=== PATIENT | male | born 1980 | race Caucasian/White ===

== ENCOUNTER 2019-06-03 05:47 | Inpatient (IN) | payer MEDICARE, SELFPAY ==
[2019-05-23 10:55] VITALS: BMI 30.4
[2019-06-03] VITALS (19 sets, daily range): BP systolic 122–161; BP diastolic 72–97; PULSE 62–124; RESP 12–20; TEMP 36.5–37.3; O2SAT 92–99; BMI 30.4
--- NOTE | 2019-06-03 | DI.RAD.S_ITS ---
PROCEDURE: XR LUMBAR SPINE 2-3V INDICATIONS: L3-4, L4-5 TLIF W/ POSTERIOR INSTRUMENTATION,. FINDINGS: 2 limited intraoperative fluoroscopically stored images of the lower lumbar spine were obtained for intraoperative hardware localization purposes. These images are not meant for diagnostic purposes. Intraoperative findings related to a lower lumbar fusion are present. IMPRESSION: Intraoperative images obtained during the patient's lumbar fusion procedure. Dictated by: Franky Weiss M.D. on 06/03/2019 at 11:03 Approved by: Franky Weiss M.D. on 06/03/2019 at 11:05
[2019-06-03] MEDS: LACTATED RINGERS 1,000 ML 42 ML IV ×2 (07:01→09:50)
--- NOTE | 2019-06-03 07:41 | PM.PREOP ---
Pre-operative Note Interval Note History & Physical reviewed/Exam performed by Physician: Yes Changes to H&P: No
[2019-06-03] MEDS: GABAPENTIN 600 MG TABLET 300 MG PO (07:43)
[2019-06-03] MEDS: CEFAZOLIN 2 GM/100 ML FROZ.PIGGY IV ×3 (07:47→23:38)
[2019-06-03] MEDS: ACETAMINOPHEN IV 1,000 MG/100 ML VIAL 400 MG IV (08:10)
--- NOTE | 2019-06-03 08:32 | SUR.OPER ---
Prone on spine table, head in foam head support, padded chest and pelvic supports, gel pad at knees, lower legs supported by pillows; nipples, genitalia and toes free of pressure, arms secured on foam padded arm boards at <90 degrees abduction. Tape over blanket at thigh secured to table.
[2019-06-03] MEDS: BUPIVACAINE 0.25% W/ EPI 30 ML VIAL INJ (08:38)
[2019-06-03] MEDS: BUPIVACAINE LIPOSOME 266 MG/20 ML VIAL INJ (08:38)
--- NOTE | 2019-06-03 12:01 | P.OP_ITS ---
Operative Date/Time/Diagnoses Date of procedure: 06/03/19 Time of procedure: 07:55 Pre-op diagnosis: 1. Post laminectomy syndrome 2. L3-4, L4-5 spinal stenosis 3. L3-4, L4-5 spondylosis with radiculopathy Post-op diagnosis: same Procedure & Clinicians Procedure: 1. L3-4, L4-5 Postero-lateral and posterior interbody fusion 2. L3-4, L4-5 interbody cage placement. 3. L3-4, L4-5 decompressive laminectomy with bilateral facetecomies 4. L3-4, L4-5 Posterior segmental instrumentation 5. [place] of bone marrow from iliac crest 6. Utilization of microsurgical technique and operating microscope Same procedure as scheduled: Yes Indications: Patient has been having chronic back pain and worsening lumbar radiculopathy. Patient failed multiple conservative management with worsening pain weakness and numbness in her lower extremity. Patient has been having difficulty performing activity of daily living. After discussing risks benefits of treatment options, patient elected proceed with surgery. Surgeon: Sushila Bal Medical Assistant Secretary: Iman Carvajal Click Yes if Unassisted: No Anesthesia Type: General Operative Notes Closure Type: primary Specimen(s): none sent Prosthetic devices, grafts, tissues, transplants, or devices: GLobus revolve screws, Rise cages Applied: catheter Estimated Blood Loss (mL): 150 Blood products transfused: none Procedure in detail: Patient was seen in the preoperative area. Risks and benefits of the surgery was discussed with the patient. Informed consent was obtained from the patient and placed in the chart. Surgical site was marked. Patient was taken to the operative room. General anesthesia was administered. Prophylactic antibiotic was given to the patient less than 30 min before the incision was made. Patient was placed into a prone position on the Sharif table. Patient's back was then prepped and draped in the sterile fashion. Time- out was performed at this time. Using AP and lateral C-arm imaging the interval between L3-4, L4-5 was identified and marked on patient's back. A 2 inch incision 2 in from midline was made on the right side first. The fascia was incised in line with skin incision. Globus MARS retractors was placed inside the incision and docked onto the L3 and L4 lamina. Using microsurgical technique and operating microscope, a L3 and L4 laminectomy and L3-4, L4-5 facetectomy was performed using a Kerrison rongeur. During the process of decompression more than 75% of bilateral L3-4, L4-5 facets were removed in order to decompress the spinal canal and the lateral recess. The L3-4, L4-5 level was grossly unstable after the decompression was completed and requiring the fusion procedure. The disc space at L3-4, L4-5 was identified. And a total diskectomy was performed at L3-4, L4-5 level. The endplates were decorticated using a rasp and shaver. The total diskectomy and decortication was performed at L3-4, L4-5 level in order to to accomplish a L3- 4, L4-5 fusion. The local bone from the laminectomy and facetectomy was saved for local bone grafting. After the total diskectomy and decortication was completed, Bio4 bone graft material was combined with local bone that was harvested earlier. At this time, a separate skin is incision was made over the iliac crest. A Jamshidi needle was inserted into the iliac crest through a separate skin incision. 5 cc of bone marrow aspiration was obtained through the separate skin incision using a Jamshidi needle from the iliac crest. The bone marrow aspiration was combined with local bone and the Bio4 bone grafting material. The bone grafting material was placed into the L3-4, L4-5 interbody space along with two cages, one expandable cage at each level. The cages were expanded to their maximum height using the torque limiting screwdriver. At this time a mirror image incision was made on the left side. The fascia was incised in line with the skin incision. Globus MARS retractor was inserted and docked onto the L3-4, L4-5 posterolateral gutter. Using the power drill, p osterior-lateral decortication was performed at L3-4, L4-5 level until bleeding cortical bone was identified. The remaining bone grafting material was placed into the L3-4, L4-5 posterior lateral gutter he order to accomplish posterolateral fusion at the L3-4, L4-5 levels. Using the double C-arm technique, pedicle screws were placed into the L3, L4, L5 pedicles bilaterally. This was done by placing the Jamshidi needle into the pedicles, then placing the guidewires over the Jamshidi needle, and finally placing the cannulated screws over the guidewires bilaterally. After the pedicle screws were placed, 2 titanium rods was locked into the heads of the pedicle screws using locking caps and torque limiting screwdriver. Total 6 pedicles screws were placed. After all the hardware was placed, and confirmed with AP and lateral C-arm imaging, the wound was then irrigated with sterile normal saline and packed with Ray-Rachel gauze for 3 min to accomplish hemostasis. After the gauze was removed the deep fascia was closed with #1 Vicryl suture. The subcutaneous layer was closed with 2-0 Vicryl. The skin was closed with skin stephanie. Patient tolerated the procedure well. There were no complications.
[2019-06-03] MEDS: LORazepam 2 MG/ML INJ 0.5 MG IV ×2 (12:07→12:26)
[2019-06-03] MEDS: OXYCODONE IR 10 MG TABLET PO ×3 (14:06→21:13)
--- NOTE | 2019-06-03 14:35 | PT.IIE ---
Current Diagnoses Spinal stenosis, lumbar region with neurogenic claudication (06/03/19) Intervertebral disc disorders with radiculopathy, lumbar region (06/03/19) Other specified postprocedural states (06/03/19) Surgery Performed Operation Date: 06/03/19 07:45 Actual Procedures p L3-4, L4-5 TLIF w/ posterior instrumentation, L2-3 left far lateral microdiscectomy through extraforamen approach - Sushila Bal MD Surgical History (Last Reviewed 06/03/19 @ 14:20 by Sheri Qiu, RAMSES) Hx of arthroscopy of left knee (Acute) Hx of cervical discectomy (Acute) Hx of lumbosacral spine surgery (Acute) Hx of tonsillectomy (Acute) S/P cervical spinal fusion (Acute ~2013) Medical History (Last Updated 05/23/19 @ 11:14 by Susie Wren RN) Acid reflux (Acute) Anxiety (Acute) Arthritis (Acute) Athlete's foot (Acute) Chronic pain (Acute) DJD (degenerative joint disease) (Acute) Depression (Acute) Failed spinal cord stimulator (Acute ~2018) Migraines (Acute) RLS (restless legs syndrome) (Acute) Sciatica (Acute) Sleep apnea (Acute) Physical Therapy Inpatient Evaluation/Re-Eval M1 PT/OT-IP Prior Functional Status Start: 06/03/19 15:41 Freq: NEEDED Status: Active Protocol: Document 06/03/19 14:35 AB (Rec: 06/03/19 15:55 AB [id number]) Medical Review Prior Functional Status Medical History Reviewed Yes Communication able to make needs known; pt is drowsy and needs cues to keep eyes open Mobility and Gait pt stated that he is modified independent with mobility and ambulation without AD but occasionally uses a SPC depending on pain Activities of Daily Living and IADL's pt stated that he needs assistance with putting his socks/shoes on Social History Household Members spouse family children Living Arrangements House Number of Floors (Floors) 3 or More Floors Number of Stairs To Enter/Railing? pt lives on a split level house but stay on the 1st level of the house without steps to enter Home Environment High Toilet Walk in Shower Home Equipment Front Wheel Walker Quad Cane Straight Cane Manual Wheelchair Long Handled Sponge Additional Social History Comment pt has an adjustable bed pt's spouse will be able to assist pt but stated that she has to go to work but pt's parents lives upstairs from them and can assist pt also. M2 PT-IP Current Condition Start: 06/03/19 15:41 Freq: NEEDED Status: Active Protocol: Document 06/03/19 14:35 AB (Rec: 06/03/19 15:55 AB [id number]) Physical Therapy Current Condition Current Condition Evaluation Date 06/03/19 Treatment Diagnosis s/p L3-5 fusion/lami; difficulty in walking Onset Date 06/03/19 Precautions Lumbar Precautions Log Roll No Twisting Limit Bending Lifting Restriction of 10 lbs Gait Belt above Incisional Area M3 PT-IP Subjective Start: 06/03/19 15:41 Freq: NEEDED Status: Active Protocol: Document 06/03/19 14:35 AB (Rec: 06/03/19 15:55 AB [id number]) Subjective Physical Therapy Visit Type Type Initial Evaluation Visit Start Time 14:35 Visit Stop Time 15:22 Total Visit Minutes 47 Number of WILLOW WORKER Visits 0 Physical Therapy Visit Comments Patient Comments pt wants to get out of the bed Therapy Pain Assessment Pain When Pain Assessed At Rest Pain Present Pain Present Pain Reported Location Lower Back Intensity 8 Scale Used increase to 9/10 with mobility Pain Management Techniques Apply Cold Re-positioning Timing of Activity with Medications M4 PT-IP Mobility and Gait Start: 06/03/19 15:41 Freq: NEEDED Status: Active Protocol: Document 06/03/19 14:35 AB (Rec: 06/03/19 15:55 AB [id number]) PT-Bed Mobility Assessment Rolling Type of Rolling Log Rolling Level of Assist Minimal Assistance Supine to Sit Supine to Sit Minimal Assistance PT-Transfer Assessment Sit to and From Stand Sit to and from Stand Minimal Assistance 1 Person Assistance Use of Upper Extremities Equipment Transfer Assistive Device Gait Belt Front Wheeled Walker Orthotic/Prosthetic Devices or Brace: No Transfers Transfer Destination Chair Transfer Technique pt ambulated using FWW Transfer Ability Level of Assist Minimal Assistance 1 Person Assistance Use of Upper Extremities Comments Mobility Comments BP 133/72 pt completed supine to sit log roll min A and cues for techniques. pt was able to sit on EOB SBA. pt without c/o dizziness/nausea. pt completed sit to stand min A and cues and ambulated in room ~ 25 ft. pt with c/o increarse pain with (+) body shaking. instructed to sit on the chair and completed with max A for controlled descent. BP checked: 122/66. positioned pt on chair. ice pack provided call light and table placed within reach. informed nurse regarding pt's complaints. Gait Assessment Gait Gait Assistance Required: Minimum Assistance Distance (Feet) 25 Able to Maintain Weight Bearing Status Yes During Gait Assistive Devices Assistive Device Gait Belt Front Wheeled Walker Orthotic/Prosthetic Devices or Brace: No Gait Deviations General Gait Pattern Antalgic Decreased Stride Length Decreased Feet Clearance Step-to Gait Factors Limiting Gait Function Factors Limiting Gait Function Decreased Activity Tolerance Decreased Strength Difficulty Following Directions Limited Range of Motion Pain Poor Balance Poor Safety Awareness PT-Balance Assessment Sitting Balance and Reactions Static Sitting Balance Ability Good Dynamic Sitting Balance Ability Good Standing Balance and Reactions Static Standing Balance Ability Fair Dynamic Standing Balance Ability Fair Device Used FWW M5 PT-IP Objective Assessments Start: 06/03/19 15:41 Freq: NEEDED Status: Active Protocol: Document 06/03/19 14:35 AB (Rec: 06/03/19 15:55 AB [id number]) Orientation Orientation/Cognition Level of Alertness Alert Orientation Name Age Birthday Place Situation Language Function Ability No Deficits Noted Safety Awareness Decreased Safety Awareness Memory Description Short Term Impaired Gross Range of Motion Lower Extremity ROM Assessment Right Impaired Strength Lower Extremity Strength Assessment Bilaterally Impaired Comments Strength Comments RLE 3+/5 LLE 4-/5 Coordination Assessment Gross Coordination Gross Coordination WNL Sensation Assessment Sensation Gross Sensation WNL Muscle Tone Muscle Tone WNL Yes M6 PT-IP Treatment Start: 06/03/19 15:41 Freq: NEEDED Status: Active Protocol: Document 06/03/19 14:35 AB (Rec: 06/03/19 15:55 AB [id number]) Physical Therapy Treatment Exercises Exercises Heel Slides Education Education Provided Precautions Weight Bearing Status Post-Op Packet Safety M7 PT-IP Assessment and Plan Start: 06/03/19 15:41 Freq: NEEDED Status: Active Protocol: Document 06/03/19 14:35 AB (Rec: 06/03/19 15:55 AB [id number]) PT Summary Assessment and Plan Potential Rehabilitation Potential Good Status of Condition at Evaluation Evolving Summary Impairments Pain ROM Strength Balance Coordination Cognition Bed Mobility Transfers Gait Activity Tolerance Assessment Summary pt requiring min A with mobility but unable to tolerate much activity due to c/o increase pain. d/c plan depending on progress. caregiver training will be conducted when appropriate. will continue to monitor pt's mobility. Goals Bed Mobility Goal Standby Assistance Transfer Goal Standby Assistance Front Wheeled Walker Gait Goal Standby Assistance Front Wheel Walker Gait Distance 200 Days to Meet Goals 5 Frequency of Treatment Frequency Of Treatment Twice a Day Treatment Plan Physical Therapy Treatment Plan Bed Mobility Training Transfer Training Gait Training Therapeutic Exercise Balance Retraining Post Op Education Discharge Planning Hot or Cold Pack Neuromuscular Re-ed Coordination Retraining Manual Therapy Other Recommendations and Next Treatment bed mobility log roll, Focus transfers, ambulation, caregiver training Recommendations To Nursing Amount of Assist Needed 1 Person Assist Discharge Recommendations PT Discharge Recommendations Home with Assistance
[2019-06-03] MEDS: OXYCODONE IR 5 MG TABLET 10 MG PO ×3 (15:32→23:07)
[2019-06-03] MEDS: SODIUM CHLORIDE 0.9% 1,000 ML 100 ML IV (15:32)
--- NOTE | 2019-06-03 17:47 | PC.NURSE ---
Addendum entered by Ronan Upton R.N. 06/03/19 22:42: patient req. to have Bishop Cath removed as he didn't like how it made him feel Call placed to Dr. Bal, permission to remove bishop earlier then ordered. Patient didn't tolerate removal well, yelled out load with removal, Even with ballon fully deflated. Patient had some dribbeling immediatly post removal as he attempted to void. States there is some burning that lingers when urinating. Original Note: Patient is a&o x4, patient states his pain is 10/10 consistently and crying out in pain. Patient is medicated per orders. Patient is now sitting up to chair eating dinner and seems to be tolerate of pain. Patient has req. mult times to have his bishop out. Patient did not tolerate removal well. Patient states I will pee as soon as you remove it. Lots of patient teaching done with patient regarding protocols post cath removal and urination. Patient attempted to urinate post Bishop removal but was unsuccessful. Urinal at bedside for patient use.
[2019-06-03] MEDS: HYDROMORPHONE 1 MG INJ 0.5 MG IV ×2 (18:36→22:24)
[2019-06-03] MEDS: GABAPENTIN 400 MG CAPSULE 800 MG PO ×2 (19:52→21:13)
[2019-06-03] MEDS: hydrOXYzine pamoate 25 MG CAPSULE PO ×2 (19:52→23:41)
[2019-06-03] MEDS: SENNOSIDES 8.6 MG TABLET 17.2 MG PO (21:13)
[2019-06-03] MEDS: DOCUSATE 100 MG CAPSULE PO (21:13)
[2019-06-03] MEDS: ACETAMINOPHEN 325 MG TABLET 650 MG PO (23:40)
--- NOTE | 2019-06-03 23:58 | PC.NURSE ---
Addendum entered by Sherine Kinney R.N. 06/04/19 05:55: Late entry: earlier patient reported some numbness in right lateral thigh. Addendum entered by Sherine Kinney R.N. 06/04/19 05:33: Ambulated in ahn after last dose of Dilaudid (walked entire nursing floor and back to room with walker and 1 assist). Currently sleeping. Addendum entered by Sherine Kinney R.N. 06/04/19 03:55: States pain is still 7/10 and requested/medicated with Dilaudid. Did discuss being unable to discharge if needing to rely on IV pain medication; verbalizes understanding. Addendum entered by Sherine Kinney R.N. 06/04/19 02:57: Slept for past hour and now states pain is 8/10; medicated with Oxycodone. No longer crying/moaning. Addendum entered by Sherine Kinney R.N. 06/04/19 00:48: Continues to complain of 9/[address] Bal called and new orders received. Addendum entered by Sherine Kinney R.N. 06/04/19 00:07: Continuing to cry and moan stating pain is 10/10; discussed with Chichi, coordinator and decision made to give IV Dilaudid now. Original Note: Patient is alert and oriented. Breath sounds CTA with RA sat of 97%. HRR but tachy at 115 bpm and BP elevated at 149/96 but is currently in severe 10/10 pain, anxious and crying. Has been medicated with Oxycodone and now Tylenol + Vistaril and can have IV Dilaudid in 30 min. Ice applied to back. Dressing is CDI. Is able to move self in bed but needs reminders to log roll and not twist. Voiding per urinal with minimal burning discomfort following catheter removal. CMS is intact. Wearing bilateral foot SCD's. Fall risk score is high and bed alarm is activated.
[2019-06-04] MEDS: HYDROMORPHONE 1 MG INJ 0.5 MG IV ×4 (00:05→21:13)
[2019-06-04] MEDS: OXYCODONE ER 10 MG TAB PO ×2 (01:15→21:08)
[2019-06-04] MEDS: OXYCODONE IR 5 MG TABLET 10 MG PO ×2 (02:55→06:10)
[2019-06-04 04:26] VITALS: BP 122/72; PULSE 94; RESP 18; TEMP 37.2; O2SAT 94
[2019-06-04] MEDS: diazePAM 5 MG TABLET PO (06:16)
[2019-06-04 06:28] LABS: Hematocrit 36.8 % (41-53); Hemoglobin 12.9 g/dL (13.5-17.5)
[2019-06-04 07:30] VITALS: BP 124/71; PULSE 96; RESP 16; TEMP 37.6; O2SAT 99
[2019-06-04] MEDS: SODIUM CHLORIDE 0.9% FLUSH 10 ML IV ×3 (07:57→21:10)
[2019-06-04] MEDS: DOCUSATE 100 MG CAPSULE PO ×2 (09:18→21:07)
[2019-06-04] MEDS: HYDROMORPHONE 2 MG TABLET 4 MG PO ×5 (09:18→22:20)
--- NOTE | 2019-06-04 09:30 | PT.IPTN ---
Current Diagnoses Spinal stenosis, lumbar region with neurogenic claudication (06/03/19) Intervertebral disc disorders with radiculopathy, lumbar region (06/03/19) Other specified postprocedural states (06/03/19) Surgery Performed Operation Date: 06/03/19 07:45 Actual Procedures p L3-4, L4-5 TLIF w/ posterior instrumentation, L2-3 left far lateral microdiscectomy through extraforamen approach - Sushila Bal MD Physical Therapy Treatment Note M2 PT-IP Current Condition Start: 06/03/19 15:41 Freq: NEEDED Status: Active Protocol: Document 06/03/19 14:35 AB (Rec: 06/03/19 15:55 AB [id number]) Physical Therapy Current Condition Current Condition Evaluation Date 06/03/19 Treatment Diagnosis s/p L3-5 fusion/lami; difficulty in walking Onset Date 06/03/19 Precautions Lumbar Precautions Log Roll No Twisting Limit Bending Lifting Restriction of 10 lbs Gait Belt above Incisional Area M3 PT-IP Subjective Start: 06/03/19 15:41 Freq: NEEDED Status: Active Protocol: Document 06/04/19 09:30 GGD (Rec: 06/04/19 13:31 GGD [id number]) Subjective Physical Therapy Visit Type Type Treatment Note Visit Start Time 09:17 Visit Stop Time 09:33 Total Visit Minutes 16 Number of DRYING ROOM SUPERVISOR Visits 1 Physical Therapy Visit Comments Patient Comments Pt up with RN. Therapy Pain Assessment Pain When Pain Assessed At Rest Pain Present Pain Present Pain Reported M4 PT-IP Mobility and Gait Start: 06/03/19 15:41 Freq: NEEDED Status: Active Protocol: Document 06/04/19 09:30 GGD (Rec: 06/04/19 13:31 GGD [id number]) PT-Bed Mobility Assessment Sit to Supine Sit to Supine Contact Guard Assistance 1 Person Assistance Bedrails PT-Transfer Assessment Sit to and From Stand Sit to and from Stand Contact Guard Assistance 1 Person Assistance Use of Upper Extremities Equipment Transfer Assistive Device Gait Belt Front Wheeled Walker Transfers Transfer Destination Bed Transfer Ability Level of Assist Contact Guard Assistance 1 Person Assistance Gait Assessment Gait Gait Assistance Required: Contact Guard Assist Distance (Feet) 200 Able to Maintain Weight Bearing Status Yes During Gait Assistive Devices Assistive Device Gait Belt Front Wheeled Walker Orthotic/Prosthetic Devices or Brace: No Gait Deviations General Gait Pattern Antalgic Decreased Stride Length Decreased Feet Clearance Step-to Gait Factors Limiting Gait Function Factors Limiting Gait Function Decreased Activity Tolerance Decreased Strength Difficulty Following Directions Limited Range of Motion Pain Poor Balance Poor Safety Awareness M5 PT-IP Objective Assessments Start: 06/03/19 15:41 Freq: NEEDED Status: Active Protocol: Document 06/03/19 14:35 AB (Rec: 06/03/19 15:55 AB [id number]) Orientation Orientation/Cognition Level of Alertness Alert Orientation Name Age Birthday Place Situation Language Function Ability No Deficits Noted Safety Awareness Decreased Safety Awareness Memory Description Short Term Impaired Gross Range of Motion Lower Extremity ROM Assessment Right Impaired Strength Lower Extremity Strength Assessment Bilaterally Impaired Comments Strength Comments RLE 3+/5 LLE 4-/5 Coordination Assessment Gross Coordination Gross Coordination WNL Sensation Assessment Sensation Gross Sensation WNL Muscle Tone Muscle Tone WNL Yes M6 PT-IP Treatment Start: 06/03/19 15:41 Freq: NEEDED Status: Active Protocol: Document 06/04/19 09:30 GGD (Rec: 06/04/19 13:31 GGD [id number]) Physical Therapy Treatment Education Education Provided Precautions M7 PT-IP Assessment and Plan Start: 06/03/19 15:41 Freq: NEEDED Status: Active Protocol: Document 06/04/19 09:30 GGD (Rec: 06/04/19 13:31 GGD [id number]) PT Summary Assessment and Plan Summary Assessment Summary Pt able to progress gait distance. He need cues for sit to stand and log roll. He needed less assist with log roll. Treatment Plan Physical Therapy Treatment Plan Bed Mobility Training Transfer Training Gait Training Therapeutic Exercise Balance Retraining Post Op Education Discharge Planning Hot or Cold Pack Neuromuscular Re-ed Coordination Retraining Manual Therapy Recommendations To Nursing Amount of Assist Needed 1 Person Assist Discharge Recommendations PT Discharge Recommendations Home with Assistance
--- NOTE | 2019-06-04 11:40 | P.PN_ITS ---
Subjective Date Patient Seen: 06/04/19 Time Patient Seen: 11:40 Interval history: 39 year old male who is POD#1 s/p L3-4, L4-[address] Bal. Having significant pain and muscle spasms. some new decrease in sensation along bilateral lateral thighs. History of chronic pain management. Has been taking oxycodone and 5mg diazepam post op. Otherwise he has mobilized about the room and is voiding. No chest pain, shortness of breath. Exam Vital Signs (past 8 hours): - 06/04/19 04:26 06/04/19 07:30 Temperature 99.0 F 99.6 F Pulse Rate 94 H 96 H Respiratory Rate 18 16 Blood Pressure 122/72 124/71 Pulse Oximetry 94 99 Oxygen Delivery Method Room Air Oxygen Flow Rate 0 Narrative Exam Narrative: 39 year old male in moderate discomfort resting in chair. Alert and oriented in no acute distress. Dressing in place over lumbar spine is CDI. Significant spasms in left lumbar paraspinals with tenderness to palpation. Sensation intact to light touch. Calves soft, compressible. Palpable pedal pulse. Objective Labs Result Diagrams: 06/04/19 05:52 Labs: Laboratory Results - last 24 hr 06/04/19 05:52 Hgb 12.9 L Hct 36.8 L Assessment & Plan Post-op Postoperative Procedures Operation Date: 06/03/19 07:45 Actual Procedures Side Surgeon p L3-4, L4-5 TLIF w/ posterior instrumentation, L2-3 left far lateral microdiscectomy through extraforamen approach Sushila Bal MD Dilaudid 2mg for moderate pain and 4mg for severe pain Q3hrs added to regimen. Diazepam increased to 10mg Q4hrs. If no improvement with these will try 24 hour burst of Decadron. Otherwise patient should continue to mobilize with PT. Ob serve BLT restrictions. Likely discharge tomorrow with better pain control. Quality VTE Deep Vein Thrombosis/Pulmonary Embolism Present on Admission: No
[2019-06-04 11:47] VITALS: BP 142/73; PULSE 104; RESP 16; TEMP 37.8; O2SAT 98
[2019-06-04] MEDS: diazePAM 5 MG TABLET 10 MG PO ×3 (11:49→20:11)
[2019-06-04] MEDS: dexAMETHasone 4 MG TABLET 6 MG PO ×2 (12:20→19:14)
--- NOTE | 2019-06-04 12:52 | OT.IP.EVAL ---
Current Diagnoses Spinal stenosis, lumbar region with neurogenic claudication (06/03/19) Intervertebral disc disorders with radiculopathy, lumbar region (06/03/19) Other specified postprocedural states (06/03/19) Surgery Performed Operation Date: 06/03/19 07:45 Actual Procedures p L3-4, L4-5 TLIF w/ posterior instrumentation, L2-3 left far lateral microdiscectomy through extraforamen approach - Sushila Bal MD Past Medical History (Last Updated 05/23/19 @ 11:14 by Susie Wren RN) Acid reflux (Acute) Anxiety (Acute) Arthritis (Acute) Athlete's foot (Acute) Chronic pain (Acute) DJD (degenerative joint disease) (Acute) Depression (Acute) Failed spinal cord stimulator (Acute ~2018) Migraines (Acute) RLS (restless legs syndrome) (Acute) Sciatica (Acute) Sleep apnea (Acute) Surgical History (Last Reviewed 06/03/19 @ 14:20 by Sheri Qiu RN) Hx of arthroscopy of left knee (Acute) Hx of cervical discectomy (Acute) Hx of lumbosacral spine surgery (Acute) Hx of tonsillectomy (Acute) S/P cervical spinal fusion (Acute ~2013) Occupational Therapy Inpatient Evaluation/Re-Eval M1 PT/OT-IP Prior Functional Status Start: 06/03/19 15:41 Freq: NEEDED Status: Active Protocol: Document 06/03/19 14:35 AB (Rec: 06/03/19 15:55 AB [id number]) Medical Review Prior Functional Status Medical History Reviewed Yes Communication able to make needs known; pt is drowsy and needs cues to keep eyes open Mobility and Gait pt stated that he is modified independent with mobility and ambulation without AD but occasionally uses a SPC depending on pain Activities of Daily Living and IADL's pt stated that he needs assistance with putting his socks/shoes on Social History Household Members spouse family children Living Arrangements House Number of Floors (Floors) 3 or More Floors Number of Stairs To Enter/Railing? pt lives on a split level house but stay on the 1st level of the house without steps to enter Home Environment High Toilet Walk in Shower Home Equipment Front Wheel Walker Quad Cane Straight Cane Manual Wheelchair Long Handled Sponge Additional Social History Comment pt has an adjustable bed pt's spouse will be able to assist pt but stated that she has to go to work but pt's parents lives upstairs from them and can assist pt also. M1 PT/OT-IP Prior Functional Status Start: 06/04/19 12:38 Freq: NEEDED Status: Active Protocol: Document 06/04/19 12:38 CGR (Rec: 06/04/19 12:52 CGR [email or web address]) Medical Review Prior Functional Status Medical History Reviewed Yes Communication able to make needs known; pt is drowsy and needs cues to keep eyes open Mobility and Gait pt stated that he is modified independent with mobility and ambulation without AD but occasionally uses a SPC depending on pain Activities of Daily Living and IADL's pt stated that he needs assistance with putting his socks/shoes on Social History Household Members spouse family children Living Arrangements House Number of Floors (Floors) 3 or More Floors Number of Stairs To Enter/Railing? pt lives on a split level house but stay on the 1st level of the house without steps to enter Home Environment High Toilet Walk in Shower Home Equipment Front Wheel Walker Quad Cane Straight Cane Long Handled Sponge Additional Social History Comment pt has an adjustable bed pt's spouse will be able to assist pt but stated that she has to go to work but pt's parents lives upstairs from them and can assist pt also. M2 OT-IP Current Condition Start: 06/04/19 12:38 Freq: Status: Active Protocol: Document 06/04/19 12:38 CGR (Rec: 06/04/19 12:52 CGR [email or web address]) Occupational Therapy Current Condition Current Condition Evaluation Date 06/04/19 Treatment Diagnosis L3-5 TLIF Post Operative Precautions Lumbar Precautions Log Roll No Twisting Limit Bending Lifting Restriction of 10 lbs Gait Belt above Incisional Area M3 OT- IP Subjective and Pain Start: 06/04/19 12:38 Freq: Status: Active Protocol: Document 06/04/19 12:38 CGR (Rec: 06/04/19 12:52 CGR [email or web address]) OT- Subjective Occupational Therapy Visit Type Type Initial Evaluation Visit Start Time 10:25 Visit Stop Time 11:15 Total Visit Minutes 50 Occupational Therapy Visit Comments Patient Comments My family can help me with LB dressing. OT Pain Assessment Pain When Pain Assessed At Rest Pain Present Pain Present Pain Reported Location Lower Back Intensity 9 Scale Used Numeric (1 - 10) Description Cramping Management Techniques Distraction Modification of Treatment Re-positioning Timing of Activity with Medications M4 OT- IP ADL's Start: 06/04/19 12:38 Freq: Status: Active Protocol: Document 06/04/19 12:38 CGR (Rec: 06/04/19 12:52 CGR [email or web address]) OT [id number] Comments OT Self-Feeding Comments Not meal time OT ADL-Grooming General Evaluation Grooming Ability Independent OT ADL-Oral Care General Eval Oral Care Ability Independent OT ADL-Dressing General Eval Upper Body Dressing Ability Independent Lower Body Dressing Ability Total Assistance Comments OT Dressing Comments Pt declined LB dressing training OT ADL-Toileting General Evaluation Toileting Ability Independent OT ADL-Bathing Comments OT Bathing Comments Educated on need for a shower chair. states that she is planning to get one jerome. M5 OT- IP IADL's Start: 06/04/19 12:38 Freq: Status: Active Protocol: Document 06/04/19 12:38 CGR (Rec: 06/04/19 12:52 CGR [email or web address]) OT-Instrumental Activities of Daily Living Deficits IADL Deficits Identified Deficits Home Safety Awareness Awareness of Need for Assistance at Home Good Awareness Ability to Problem Solve Emergency Able to Problem Solve Situations Medication Management Medication Management No Deficits Identified Money Management Money Management No Deficits Identified Meal Preparation Meal Preparation Caregiver Provides Assist Bioinformatics Specialist Bioinformatics Specialist Caregiver Provides Assist Driving Driving Comments Pt understands that he has doctors orders not to drive at this time. M6 OT- IP Functional Cognition Start: 06/04/19 12:38 Freq: Status: Active Protocol: Document 06/04/19 12:38 CGR (Rec: 06/04/19 12:52 CGR [email or web address]) Cognitive Factors Limiting Selfcare Function Cognitive Ability Level of Alertness Alert Patient Orientation Name Age Birthday Month Date Year Day of Week Place Situation Attention Span Ability Capable of Focused Attention Capable of Sustained Attention Ability to Follow Commands Able to Follow Multi-Step Commands Memory Description No Deficits Noted Safety Awareness No Deficits Noted Problem Solving Ability No deficits Noted Executive Function Ability No Deficits Noted Abstract Thinking Ability No Deficits Noted OT- Vision and Hearing OT- Hearing Assessment OT- Hearing Assessment WFL OT- Vision Assessment Visual Acuity WFL No Vision Aides At Hospital Visual Attentiveness WFL Occular Pursuits WFL Visual Convergence WFL Visual [place] WFL Diplopia Absent Visual Spacial Neglect Not Applicable M7 OT- IP Mobility and Balance Start: 06/04/19 12:38 Freq: Status: Active Protocol: Document 06/04/19 12:38 CGR (Rec: 06/04/19 12:52 CGR [email or web address]) OT- Bed Mobility Assessment Rolling Type of Rolling Log Rolling Level of Assistance Standby Assistance Supine to Sit Supine to Sit Assist Standby Assistance Scooting Scooting to Edge of Bed Standby Assistance OT-Transfer Assessment Sit to and From Stand Sit to and from Stand Contact Guard Assistance Transfers Transfer Ability Contact Guard Assistance Technique Transfer Destination Bed Chair Transfer Technique Stand Step Pivot Devices Transfer Assistive Devices Gait Belt Front Wheeled Walker OT- Gait Assessment Gait Gait Assistance Required: Contact Guard Assist Assistive Devices Assistive Device Gait Belt Front Wheeled Walker Comments Gait Ability Comments mobility within the room to attempt to help with pain control. OT- Balance Assessment Sitting Balance and Reactions Static Sitting Balance Ability Normal Dynamic Sitting Balance Ability Normal Standing Balance and Reactions Static Standing Balance Ability Good Dynamic Standing Balance Ability Good M8 OT- IP Objective Assessments Start: 06/04/19 12:38 Freq: Status: Active Protocol: Document 06/04/19 12:38 CGR (Rec: 06/04/19 12:52 CGR [email or web address]) OT Gross Range of Motion Upper Extremity Range of Motion Assessment Within Functional Limits ROM Impairments Pt has a shld injury to the R shld but mobility is WFL OT Strength Upper Extremity Strength Assessment Within Functional Limits OT- Coordination Assessment Upper Extremity Finger to Nose Test Within Functional Limits Finger Tapping Test Within Functional Limits OT-Muscle Tone Assessment Muscle Tone WNL Yes OT Sensation Assessment Edema Edema Present Edema Comments Slight swelling noted above the sx site. PA notified. M9 OT- IP Assessment and Plan Start: 06/04/19 12:38 Freq: Status: Active Protocol: Document 06/04/19 12:38 CGR (Rec: 06/04/19 12:52 CGR [email or web address]) OT Summary Assessment and Plan Potential Rehabilitation Potential Excellent Analytic Complexity at Evaluation Low Summary OT Impairments Pain Balance Functional Mobility Dressing Progress Towards Goals Progressing Toward Goals Assessment Summary Pt presents close to his baseline s/p L3-5 TLIF. Pt currently with pain control issues but otherwise is performing mobility and ADLs close to his baseline. Will defer functional mobility to P .T. and discharge order. Ok for d/c home when medically ready. Frequency of Treatment Frequency Of Treatment Discharge Discharge Recommendations OT Discharge Recommendations Home with Assistance Home Equipment Needs shower chair and armrails over toilet if needed. Discussed with pt and .
--- NOTE | 2019-06-04 13:18 | DI.RAD.S_ITS ---
PROCEDURE: XR LUMBAR SPINE 2-3V INDICATIONS: increase post op TLIF pain TECHNIQUE: 3 views of the lumbar spine were acquired. COMPARISON: [facility], CR, XR LUMBAR SPINE 2-3V, 06/03/2019, 10:35. FINDINGS: Bones: There is normal bony alignment. No vertebral body compression fractures. No suspicious bony lesions. Expected postsurgical changes related to an L3-L5 discectomy and posterior fusion is evident. Bony alignment through these levels is within normal limits. The orthopedic hardware is intact. No displaced acute fractures are identified. Soft tissues: Overlying bowel gas pattern is normal. No suspicious soft tissue calcifications. Expected postoperative changes within the dorsal lower lumbar soft tissues is present there is a soft tissue air and edema. IMPRESSION: 1. Expected postsurgical changes related to a lower lumbar discectomy and fusion. 2. Alignment of the lumbar spine is within normal limits. Dictated by: Franky Weiss M.D. on 06/04/2019 at 13:28 Approved by: Franky Weiss M.D. on 06/04/2019 at 13:30
[2019-06-04] MEDS: hydrOXYzine pamoate 25 MG CAPSULE PO ×3 (13:38→22:21)
--- NOTE | 2019-06-04 13:50 | PT.IPTN ---
Current Diagnoses Spinal stenosis, lumbar region with neurogenic claudication (06/03/19) Intervertebral disc disorders with radiculopathy, lumbar region (06/03/19) Other specified postprocedural states (06/03/19) Surgery Performed Operation Date: 06/03/19 07:45 Actual Procedures p L3-4, L4-5 TLIF w/ posterior instrumentation, L2-3 left far lateral microdiscectomy through extraforamen approach - Sushila Bal MD Physical Therapy Treatment Note M2 PT-IP Current Condition Start: 06/03/19 15:41 Freq: NEEDED Status: Active Protocol: Document 06/03/19 14:35 AB (Rec: 06/03/19 15:55 AB [id number]) Physical Therapy Current Condition Current Condition Evaluation Date 06/03/19 Treatment Diagnosis s/p L3-5 fusion/lami; difficulty in walking Onset Date 06/03/19 Precautions Lumbar Precautions Log Roll No Twisting Limit Bending Lifting Restriction of 10 lbs Gait Belt above Incisional Area M3 PT-IP Subjective Start: 06/03/19 15:41 Freq: NEEDED Status: Active Protocol: Document 06/04/19 13:50 GGD (Rec: 06/04/19 16:08 GGD [id number]) Subjective Physical Therapy Visit Type Type Treatment Note Visit Start Time 13:35 Visit Stop Time 13:50 Total Visit Minutes 15 Number of ANESTHETIC ASSISTANT Visits 2 Physical Therapy Visit Comments Patient Comments Pt states he wants to get into the chair. Therapy Pain Assessment Pain When Pain Assessed At Rest Pain Present Pain Present Pain Reported Location Lower Back Intensity 9 Scale Used Numeric (1 - 10) Pain Management Techniques Apply Cold Modification of Treatment Re-positioning Timing of Activity with Medications M4 PT-IP Mobility and Gait Start: 06/03/19 15:41 Freq: NEEDED Status: Active Protocol: Document 06/04/19 13:50 GGD (Rec: 06/04/19 16:08 GGD [id number]) PT-Transfer Assessment Sit to and From Stand Sit to and from Stand Moderate Assistance 1 Person Assistance Use of Upper Extremities Equipment Transfer Assistive Device Gait Belt Front Wheeled Walker Transfers Transfer Destination Chair Transfer Ability Level of Assist Minimal Assistance 1 Person Assistance Gait Assessment Gait Gait Assistance Required: Minimum Assistance Distance (Feet) 5 Able to Maintain Weight Bearing Status Yes During Gait Assistive Devices Assistive Device Gait Belt Front Wheeled Walker Orthotic/Prosthetic Devices or Brace: No Gait Deviations General Gait Pattern Antalgic Decreased Stride Length Decreased Feet Clearance Step-to Gait Factors Limiting Gait Function Factors Limiting Gait Function Decreased Activity Tolerance Decreased Strength Difficulty Following Directions Limited Range of Motion Pain Poor Balance Poor Safety Awareness M5 PT-IP Objective Assessments Start: 06/03/19 15:41 Freq: NEEDED Status: Active Protocol: Document 06/03/19 14:35 AB (Rec: 06/03/19 15:55 AB [id number]) Orientation Orientation/Cognition Level of Alertness Alert Orientation Name Age Birthday Place Situation Language Function Ability No Deficits Noted Safety Awareness Decreased Safety Awareness Memory Description Short Term Impaired Gross Range of Motion Lower Extremity ROM Assessment Right Impaired Strength Lower Extremity Strength Assessment Bilaterally Impaired Comments Strength Comments RLE 3+/5 LLE 4-/5 Coordination Assessment Gross Coordination Gross Coordination WNL Sensation Assessment Sensation Gross Sensation WNL Muscle Tone Muscle Tone WNL Yes M6 PT-IP Treatment Start: 06/03/19 15:41 Freq: NEEDED Status: Active Protocol: Document 06/04/19 13:50 GGD (Rec: 06/04/19 16:08 GGD [id number]) Physical Therapy Treatment Education Education Provided Precautions Safety M7 PT-IP Assessment and Plan Start: 06/03/19 15:41 Freq: NEEDED Status: Active Protocol: Document 06/04/19 13:50 GGD (Rec: 06/04/19 16:08 GGD [id number]) PT Summary Assessment and Plan Summary Assessment Summary Pt need increase in assist with increase in pain. He had decrease tolerance to gait and pain with left LE weight bearing. Frequency of Treatment Frequency Of Treatment Twice a Day Treatment Plan Physical Therapy Treatment Plan Bed Mobility Training Transfer Training Gait Training Therapeutic Exercise Balance Retraining Post Op Education Discharge Planning Hot or Cold Pack Neuromuscular Re-ed Coordination Retraining Manual Therapy Recommendations To Nursing Amount of Assist Needed 1 Person Assist Discharge Recommendations PT Discharge Recommendations Home with Assistance
[2019-06-04 15:35] VITALS: BP 131/70; PULSE 101; RESP 18; TEMP 37.9; O2SAT 97
--- NOTE | 2019-06-04 15:58 | CM.DANOTE ---
Discharge Planning/Care Management DCP: assessment: case received, EMR reviewed. Discussed in Team Rounds. PT and OT were to see pt today. Pt is a 39 year old male who admitted to care Surgeon: Dr. Bal for a planned spinal surgery: 06/03. Payer: Medicare Admission status: INPT: confirmed by UR RN Delilah. Ortho PA Sherrell noted that pt with severe pain and spasms today and also pt with a history of chronic pain management. Steroids willl be considered if need be. Review of OT/PT notes now show that pt is progressing toward his home plan. He lives with his who does work but can assist some of the time. His parents live upstairs from the couple and are available to help him. Will check in tomorrow to meet with pt and follow up on d/c issues and options. CM Discharge Assessment Start: 06/04/19 15:56 Freq: Status: Active Protocol: Document 06/04/19 15:56 ITV (Rec: 06/04/19 15:58 ITV [id number]) Discharge Planning Assessment Advance Directives? No: Declines further information History Provided By Medical Record Prior Living Arrangements House Household Members spouse family children Independent with ADL's No: per PT: modified independence with spc and prn help shoes/socks Is patient alert and oriented? Yes Review Status In Process Pre-Anesthesia Assessment Start: 05/23/19 10:55 Freq: Status: Complete Protocol: Document 05/23/19 10:55 CAB (Rec: 05/23/19 11:39 CAB [id number]) Pre-Anesthesia Assessment Patient Also Known As (JUSTUS Lopez Patient Information Reviewed Via Phone Assessment Assessment Completed With Patient Diagnostic Results BMP/CMP CBC Comment Outside labs scanned to record Primary Care Provider KATHIE Seen Specialist in Last 12 Months Yes Specialist Seen Orthopedist Other Comment Pain management Primary Language [place] Staff Submarine Warfare Officer Required No Height 175.26 cm Weight 93.44 kg Body Mass Index (BMI) 30.4 Hearing Ability Normal Visual Assist Glasses Dentition Type Full- Upper & Lower Barriers to Learning None Hx Anesthesia Reactions No Hx Family Anesthesia Reaction No Hx Malignant Hyperthermia No Hx Blood Transfusions No Anesthesia Review Requested No alcohol intake former Smoking Status Current every day smoker Tobacco type cigarettes Smoking packs per day 0.5 Substance Use Type marijuana Comment Pt advised not to smoke marijuana 24 hours prior Pain Present Pain Reported Comment Constant, pressure Musculoskeletal Symptoms Abnormal Gait Back Pain Difficulty Walking Joint Pain Numbness Radiating Pain into Limb Tingling History of Falling (Recent or History of Yes ) Patient is completely paralyzed or No completely immobile Prosthesis or Orthotic Device Front Wheel Walker Mental Status Oriented to own ability Is patient on oxygen? No Does patient have NAVARRO/SOB No Hx Sleep Apnea Yes CPAP/BIPAP use prescribed not used Currently Taking a Beta Mo No Can You Climb a Flight of Stairs Without No SOB Hx Chest Pain No Hx SOB No Hx Syncope or Dizziness No Anti-Coagulant Therapy No Has a Automobile Tire Builder No Cardiac Testing No Hx Pacemaker/ICD No Pacemaker Rep Required? No Cardiac Clearance Received Not Applicable dysphagia No Bladder Pattern Frequency Urinary Catheter Present No Hx Urinary Self Catheterization No Diabetes No Hx Drug Resistant Organism No Presence of External or Internal Medical Yes: Cervical hardware Devices Have you traveled outside the [facility] in the last 30 days? Marital Status Lives With spouse children Prior Living Arrangements Apartment/Condo Support System Spouse Does the Patient Have Assistance After Yes Surgery Patient Discharge Plan Description Return Home Comment Pt advised 1-2 day length of stay per surgeon's office Feels Safe in Current Environment Yes Been Physically Hurt or Threatened By a No Person in Current Environment Do you have thoughts of harming yourself None or others? Are you currently considering suicide? No Do you have a plan to hurt yourself or No Plan others? Do You Have Any Spiritual Beliefs That No May Affect Your HC Choices? Do You Have Any Cultural Practices That No May Affect Your HC Choices? Comment Restorationism Who Can We Speak to About Patient's Care Immediate family only Identifying Code for Release of Patient Sam Health Care Proxy/Next of Kin Conner () Health Care Proxy Emergency Contact Name Conner () Emergency Contact Advance Directives? No: Declines further information PAC Instructions Do not shave/clip surgical site Durable medical equipment Medications to take/avoid Nasal antibiotic No ETOH/petroleum product on skin DOS NPO Post-op transportation Pre-surgical wash Sensory aids Sturdy shoes/comfortable clothes Do not bring valuables and remove jewelry
--- NOTE | 2019-06-04 16:48 | PC.NURSE ---
1600- Pt up to chair, and requesting valium 10mg and dilaudid 4mg, which are due, and given. back to bed with 1PA FWW, provided hand made ice bag to lower back for comfort. Urinal with 700ml clear yellow urine. Bed alarm on and call light in reach.
[2019-06-04 19:43] VITALS: BP 125/80; PULSE 101; RESP 18; TEMP 37.3; O2SAT 96
[2019-06-04] MEDS: GABAPENTIN 400 MG CAPSULE 800 MG PO ×2 (20:11→21:07)
[2019-06-04] MEDS: SENNOSIDES 8.6 MG TABLET 17.2 MG PO (21:07)
[2019-06-05 00:55] VITALS: O2SAT 96
[2019-06-05] MEDS: dexAMETHasone 4 MG TABLET 6 MG PO ×2 (01:25→06:44)
[2019-06-05] MEDS: HYDROMORPHONE 2 MG TABLET 4 MG PO ×4 (01:28→12:36)
[2019-06-05 01:31] VITALS: BP 118/64; PULSE 75; RESP 18; TEMP 37.1; O2SAT 96
--- NOTE | 2019-06-05 02:48 | PC.NURSE ---
Addendum entered by Sherine Kinney R.N. 06/05/19 06:12: Patient states pain has gotten worse and is now 7/10 so medicated with IV Dilaudid for breakthrough pain. Patient alert and able to have conversation without obvious symptoms of discomfort. Assisted to sit up on edge of bed and ice applied to back. Addendum entered by Sherine Kinney R.N. 06/05/19 04:44: More alert at this time. Assisted to reposition onto back. States pain is 6/10 and exacerbated by movement; medicated with Dilaudid + Valium as per his request. Declines ice pack at this time. Original Note: Patient awakened around 0120 for vitals and assessment. At that time stated pain much improved at 6/10. Was medicated with po Dilaudid and scheduled Dexamethasone and ice applied to back. in room and wanting patient to have either Valium or Vistaril for muscle spasms but patient is drowsy with slurred speech and fell asleep quickly after taking medications. Discussed that RN will wake patient in 4 hours for Dilaudid to keep pain managed, but is wakes and needs something additional before that time he can request something additional before then. Is oriented. Breath sounds CTA with RA sat of 96%. HRR. Denies nausea. BT present and abdomen is soft; passing flatus. Denies dysuria, frequency or urgency. Moving self in bed. Dressing to back is CDI. When up uses walker and SBA. Still has some numbness on lateral aspect right thigh but states numbness in left thigh has resolved. CMS otherwise is intact. Wearing foot SCD's. Fall risk is high as patient reports fall in past 3 months; bed alarm is activated.
[2019-06-05] MEDS: diazePAM 5 MG TABLET 10 MG PO ×2 (04:35→12:36)
[2019-06-05 04:38] VITALS: BP 132/98; PULSE 95; RESP 19; TEMP 36.4; O2SAT 96
[2019-06-05] MEDS: SODIUM CHLORIDE 0.9% FLUSH 10 ML IV ×2 (05:53→08:45)
[2019-06-05] MEDS: HYDROMORPHONE 1 MG INJ 0.5 MG IV ×2 (05:53→09:30)
[2019-06-05 07:15] VITALS: BP 152/77; PULSE 92; RESP 18; TEMP 37.1; O2SAT 98
[2019-06-05] MEDS: OXYCODONE ER 10 MG TAB PO (08:45)
[2019-06-05] MEDS: DOCUSATE 100 MG CAPSULE PO (08:45)
[2019-06-05] MEDS: MAGNESIUM HYDROXIDE 30 ML UDC PO (08:46)
[2019-06-05] MEDS: hydrOXYzine pamoate 25 MG CAPSULE PO (09:27)
--- NOTE | 2019-06-05 11:29 | PM.PN.1 ---
Exam Vital Signs (past 8 hours): - 06/05/19 04:38 06/05/19 07:15 Temperature 97.6 F 98.7 F Pulse Rate 95 H 92 H Respiratory Rate 19 18 Blood Pressure 132/98 H 152/77 H Pulse Oximetry 96 98 Oxygen Delivery Method Room Air Oxygen Flow Rate 0 Objective Labs Result Diagrams: 06/04/19 05:52 Assessment & Plan Assessment & Plan narrative: Patient is admitted after surgery. Patient has been stable and progressing with physical therapy. Patient is neurovascularly intact on exam. Patient has no signs or symptoms of DVT. Patient's dressing is clean dry and intact. Patient will be discharged today to home Quality VTE Deep Vein Thrombosis/Pulmonary Embolism Present on Admission: No
[2019-06-05 11:42] VITALS: BP 149/87; PULSE 89; RESP 18; TEMP 36.9; O2SAT 98
--- NOTE | 2019-06-05 12:23 | CM.DPC ---
DCP: continued: Met with pt and his Sarah as planned. Pt is found sitting up, dressed. Says he feels much better today and that the steriod treatment was very helpful. He said that Dr. Bal was just here and that d/c today was planned. These orders appear to be in process. P: home today, ortho clinic followup.
--- NOTE | 2019-06-05 13:16 | PC.NURSE ---
Day shift: Medicated for pain for drive back home to [place]. Paperwork signed and all questions answered. Pt has all personal belongings as well as MD scrips. Pt taken to private car by WC by IVON Pretty. Pt in good spirits upon his d/c.
--- NOTE | 2019-06-09 09:44 | PM.DS.1 ---
History of Present Illness History of Present Illness Date Patient Seen: 06/09/19 Time Patient Seen: 09:44 Chief complaint: [id number] Discharge Providers Provider Date of admission: 06/03/19 05:47 Discharge Date: 06/05/19 Consults: 05/23/19 11:39 Consult to Respiratory Therapy Evaluate & Treat Comment: SHANNA-No CPAP, current smoker, wants patch surg 06/03 Physician Instructions: Evaluate and treat 06/03/19 13:15 Consult to Occupational Therapy Evaluate & Treat Comment: Physician Instructions: Evaluate and treat Consult to Physical Therapy Evaluate & Treat Comment: Physician Instructions: Evaluate and Treat 06/03/19 14:24 Consult to Dietitian, Adult Routine Comment: Reason For Exam: weight loss of almost 40 lbs since Oct Discharge provider: Evelio Kothari PA-C Summary Hospital Course Discharge Diagnosis: Status post L3-4, L4-5 TLIF, cage, posterior screws. Hospital Course: Patient brought to hospital on 06/03/2019 for above noted surgery by Dr. Bal. He remained stable postoperatively. Progressed well with physical therapy. Ready for discharge home on postop day 2. Status at Discharge Cognitive/behavioral status at discharge: oriented Functional status at discharge: uses cane/walker Overall status at discharge: patient is progressing back to baseline Time Spent with Patient Time spent: Less than 30 minutes Exam Vital Signs (past 8 hours): Oxygen Delivery Method Room Air Oxygen Flow Rate 0 Objective Labs Result Diagrams: 06/04/19 05:52 Discharge Plan Discharge Plan Patient Disposition: Home Discharge comment: Discharge home after cleared by PT. Avoid excessive bending or twisting of lumbar spine. No lifting or carrying more than 5-10 lb. Discharge Med Rec/Prescriptions Prescriptions: New hydromorphone 2 mg Tablet 4 mg PO Q4-6H PRN (Reason: Severe Pain (7-10)) Qty: 60 RF: 0 diazepam 5 mg Tablet 5 mg PO Q4H PRN (Reason: Muscle Spasm) Qty: 30 RF: 0 oxycodone [OxyContin] 10 mg Tablet,Oral Only,Ext.Rel.12 Hr 10 mg PO BID Qty: 30 RF: 0 Continued acetaminophen [Tylenol Extra Strength] 500 mg Tablet 1,000 mg PO Q6H PRN (Reason: Pain) RF: 0 gabapentin 800 mg Tablet 800 mg PO SEEINSTR RF: 0 oxycodone 10 mg Tablet 10 mg PO QID RF: 0 Discontinued naproxen sodium [Aleve] 220 mg Capsule 440 mg PO BID RF: 0 Provider Discharge Instructions Diet: Diet as Tolerated and Regular Activity: Limit bending and twisting Skin/Wound/Dressing Care Report to your healthcare provider any signs of infection, such as:: chills, fever, night sweats, increased pain, unusual drainage and unusual redness Dressing: Keep dressing clean and dry May shower with dressing covered for 2 weeks Visit Report/Discharge Packet Instructions: Stool Softeners, Hydromorphone, Diazepam, Oxycodone, DI for Transforaminal Lumbar Interbody Fusion Discharges patient from system. Discharge Date/Time: 06/05/19 13:17 Quality VTE Deep Vein Thrombosis/Pulmonary Embolism Present on Admission: No
== END 2019-06-05 13:17 | disposition home or self-care (01) | DRG 455 ==
PROVIDERS: Admitting Provider Orthopaedic Surgery Orthopaedic Surgery of the Spine; Visit Provider Orthopaedic Surgery Orthopaedic Surgery of the Spine
PROC: 0SG10AJ Fusion of 2 or more Lumbar Vertebral Joints with Interbody Fusion Device, Posterior Approach, Anterior Column, Open Approach (ICD-10-PCS; principal; 2019-06-03 07:45)
DX: M48.062 Spinal stenosis, lumbar region with neurogenic claudication (principal); M51.16 Intervertebral disc disorders with radiculopathy, lumbar region; F17.210 Nicotine dependence, cigarettes, uncomplicated; G89.29 Other chronic pain; M96.1 Postlaminectomy syndrome, not elsewhere classified; M62.838 Other muscle spasm
CPT/HCPCS: 36415; 72100; 76000; 85014; 85018; 94762; 97116; 97162; 97165; 97530; 97535; 99406; C1776; C9290; J0131; J0330; J0690; J1100; J1170; J2060; J2250; J2405; J2704; J3010